=== PATIENT | male | born 1955 | race African-American/Black ===

== ENCOUNTER 2021-09-01 18:03 | Emergency (ER) | payer OTHER ==
[~2021-09-01] VITALS: Ht 170.2 cm; Wt 77.2 kg
[2021-09-01] MEDS ORDERED: METF-416 PO (19:13)
[2021-09-01 19:28] VITALS: BP 125/79
[2021-09-01] MEDS ORDERED: IBUPROFEN 400MG TABLET PO ONE (19:30)
== END 2021-09-01 21:53 | disposition home or self-care (01) ==
LOC: ER 18:03
DX: S92.911A Unspecified fracture of right toe(s), initial encounter for closed fracture (principal); E11.9 Type 2 diabetes mellitus without complications; X58.XXXA Exposure to other specified factors, initial encounter; Y93.89 Activity, other specified; Y92.89 Other specified places as the place of occurrence of the external cause; Y99.8 Other external cause status
CPT/HCPCS: 73660; 82962; 99283